=== PATIENT | female | born 1960 | race Caucasian/White ===

== ENCOUNTER → 2016-12-14 | Outpatient (CLI) | payer BC ==
[~2016-12-14] MED LIST: ATOR10TA88 PO
--- NOTE | 2016-12-14 15:48 | MAMMOGRAPHY REPORT ---
BILATERAL DIGITAL SCREENING MAMMOGRAM TOMOSYNTHESIS WITH CAD: 12/14/2016 CLINICAL HISTORY: Routine screening. Patient has no complaints. TECHNIQUE: Breast tomosynthesis in addition to standard 2D mammography was performed. Current study was also evaluated with a Computer Aided Detection (CAD) system. COMPARISON: Comparison is made to exams dated: 12/09/2015 mammogram, 11/26/2014 mammogram, 05/06/2012 m ammogram, 03/07/2011 mammogram, 03/06/2010 mammogram - [facility], and 02/27/2008. BREAST COMPOSITION: The tissue of both breasts is almost entirely fatty. FINDINGS: No suspicious masses, calcifications, or areas of architectural distortion are noted in ei ther breast. There has been no significant interval change compared to prior exams. IMPRESSION: ACR BI-RADS CATEGORY 1: NEGATIVE There is no mammographic evidence of malignancy. A 1 year screening mammogram is recommended. The pa tient will receive written notification of the results. Approximately 10% of breast cancers are not detected with mammography. A negative mammographic report should not delay biopsy if a clinically suggestive mass is present. Brandy Morris M.D. ah/:12/14/2016 09:40:25 Invasive Cardiovascular Technologist: Suma MORINR, M, [facility] letter sent: Normal 1/2 BI-RADS Code: ACR BI-RADS Category 1: Negative
== END | disposition home or self-care (01) ==
LOC: C.MAMM 08:58
PROVIDERS: ATTEND Family Medicine
DX: Z12.31 Encounter for screening mammogram for malignant neoplasm of breast (principal)

== ENCOUNTER → 2017-02-08 | Outpatient (CLI) | payer BC ==
[~2017-02-08] MED LIST changes: +ATOR10TA82 PO; -ATOR10TA88 PO
== END | disposition home or self-care (01) ==
LOC: C.PAPS 11:14
PROVIDERS: ATTEND Obstetrics & Gynecology
DX: Z01.419 Encounter for gynecological examination (general) (routine) without abnormal findings (principal); Z78.0 Asymptomatic menopausal state

== ENCOUNTER → 2017-09-27 | Outpatient (CLI) | payer OTHER ==
[~2017-09-27] VITALS: Ht 157.5 cm; Wt 81.1 kg
[2017-09-27 15:41] VITALS: BP 114/74; PULSE 89; Ht 157.5 cm; Wt 81.1 kg
== END | disposition home or self-care (01) ==
LOC: C.NEUR 14:45
PROVIDERS: ATTEND Internal Medicine Pulmonary Disease
DX: R06.81 Apnea, not elsewhere classified (principal); R06.83 Snoring; R53.83 Other fatigue; D64.9 Anemia, unspecified; D50.9 Iron deficiency anemia, unspecified

== ENCOUNTER → 2017-10-17 | Outpatient (CLI) | payer OTHER ==
--- NOTE | 2017-10-18 05:39 | PAP/PSG TECHNICIAN REPORT ---
[facility] Lab Analyst Polysomnogram Report Study name: None Report date: 10/18/2017 Study date: 10/17/2017 Referring Physician: Ike King M.D. Name: CLAIRE COREY GENARO Isaac Interpreting Physician: Ike King M.D. Date of : 1960 Lab Analyst: Melissa Wiseman [facility]. Sex: Female Age: 57 StudyType: PSG Weight: 178 lbs Height: 57 years, Height 5' 2" Neck Circum: 15 inches BMI: 32.55 Medications: Lexapro 10 mg, Lipitor 20 mg, Vitamin D Patient History 57 yr. old female here for a diagnostic sleep study. Patient complains of Snoring and was told years ago she stopped breathing during a colonoscopy. Patient also has iron deficiency. Patients ESS 08/01. Parameters Monitored NPSG: E1-M2, E2-M1, Fp1-M2, Fp2-M1, F3-M2, F4-M2, F4-M1, C3-M2, C4-M2, C4-M1, O1-M2, O2-M2, O2-M1, T3-M2, T4-M1, P3-M2, P4-M1, CHIN1, CHIN2, HR, EKG, Legs, PFLOW, SNOR, FLOW, CFLOW, Tidal Volume, THOR, ABDO, SpO2, PLTH, CPRESS, ETCO2 Wave, ETCO2, pH Sleep Architecture Sleep Stages Time at Lights Off 9:55:48 PM STAGES Time (min.) TST (%) Time at Lights On 5:33:18 AM Wake 143.0 -- Total Recording Time (TRT) 458.00 min. N1 18.5 6 Total Sleep Period (TSP) 401.0 min. N2 203.0 65 Total Sleep Time (TST) 314.5min. N3 62.5 20 Awake Time 143.5 min. REM 30.5 10 Wake after Sleep Onset 92.0 min. Sleep Efficiency (SE) 69 % Sleep Onset Latency (CJ) 51.0 min. Number of Stage 1 Shifts None Awakenings 14 Stage Changes 69 Number of REM periods 4 REM 30.5 10 REM Latency 334.5 min. NREM 284.0 90 Body Position Analysis Supine Right Left Side Prone Vertical Total Sleep Time (min.) 0.0 80.0 234.5 314.50 0.0 0.6 Total Sleep Time (%) 0% 25% 75% 100 0% N/A% Total Sleep Time REM (min.) 0.0 0.0 30.5 None 0.0 0.0 Total Sleep Time NREM (min.) 0.0 80.0 204.0 None 0.0 0.0 Intermittent Wake (min.) 0.0 102.0 40.4 None 0.0 0.6 Total Sleep Period (%) 0% None None None None None Arousals Myoclonus (PLM) * Events Count Index Events Count Index Spontaneous 2 0 Events Awake (PLMW) 51 21.4 Respiratory 10 2.7 Events Asleep w/ Arousal (PLMA) 10 1.9 PLM 10 2 Events Asleep w/o Arousal (PLMS) 74 14.1 Snoring 11 2 Total Asleep 84 16.0 Total 32 6 Total 135 18 Respiratory Analysis * CA OA MA CH H RERA Total Count 2 20 0 0 82 0 104 Index 0.4 3.8 0.0 0 15.6 0 19.8 Mean Duration 20.6 16.4 0.0 0.00 28.1 0.0 25.7 Longest Duration 22.7 21.8 0.0 0.00 0.0 0.0 63.4 Respiratory Event Summary Total Supine ~Supine Right Left Prone REM NREM Apneas Count 22 N/A 22 1 21 N/A 11 11 Index 4.2 N/A 4 0.8 5.4 N/A 22 2 Hypopneas (4% Desat) Count 82 N/A 82 19 63 N/A 23 59 Index 15.6 N/A 16 14.3 16.1 N/A 45.2 12.5 Apneas & All Hypopneas Count 104 N/A 104 20 84 N/A 34 70 Index 19.8 N/A 20 15 21 N/A 66.9 14.8 Respiratory Events (Recovery Assistant+All Hyp+RERA) Count 104 N/A 104 20 84 N/A 34 70 Index 19.8 N/A 20 15.0 21.5 N/A 66.9 14.8 Respiratory Related Arousal Count 10 N/A 14 2 12 N/A 3 11 Index 2.7 N/A 3 2 3 N/A 6 2 Snoring Analysis Supine Right Left Prone REM NREM Total Snore duration 112.1 min Snores count N/A 937 2,858 N/A 345 3,450 3,795 Snore mean duration 1.8 Sec Snores index N/A 703 731 N/A 678.7 728.9 724.0 TST with snoring (%) 35.7% Desaturation Event Summary: Minimum %SpO2 Event Count Mean/Min/Max Duration(sec.) Desaturation Index % Time In Bed > 90 82 28.5 / 9.0 / 60.0 16.3 66.5 86 - 90 29 24.7 / 9.5 / 44.5 12.1 31.7 81 - 85 6 9.9 / 7.3 / 13.0 48.8 1.6 76 - 80 1 10.0 / 10.0 / 10.0 62.3 0.2 71 - 75 0 N/A 0.0 0.0 66 - 70 0 N/A 0.0 0.0 61 - 65 0 N/A 0.0 0.0 56 - 60 0 N/A 0.0 0.0 51 - 55 0 N/A 0.0 0.0 < 50 0 N/A 0.0 0.0 Total REM NREM Awake <50% 0.0 min. 0.0 min. 0.0 min. 0.0 min. 51 - 60% 0.0 min. 0.0 min. 0.0 min. 0.0 min. 61 - 70% 0.0 min. 0.0 min. 0.0 min. 0.0 min. 71 - 80% 1.0 min. 0.8 min. 0.0 min. 0.2 min. 81 - 90% 151.1 min. 17.7 min. 128.5 min. 4.9 min. 91 - 100% 301.7 min. 12.0 min. 155.5 min. 134.2 min. Average 92 89 91 94 Minimum SpO2 76 76 85 79 Desaturation Event Index 12.7 55.1 12.5 5.0 # Desat. Events below 89% 56 24 30 2 Time(%) with Saturation below 89% 8.4 2.7 5.3 0.4 Time(min.) with Saturation below 89% 38.0 12.1 24.2 1.7 Time (mins) REM (mins) NREM (mins) % of TST SpO2 Below 90% 80 26 N54 26.0 SpO2 Below 88% 23 0 0 5 Heart Rate Analysis Min (bpm) Max (bpm) Average (bpm) Awake 49 105 57 NREM 46 80 56 REM 47 81 60 Overall 46 81 56 Supplemental O2 Values Minimum O2 level: None Value Start Time End Time Lab Analyst Comments MS. iRce slept in the right and left positions. No cardiac arrhythmia or PLMs noted. No bruxism noted. Snoring was noted and scored as a 4 on a scale of 0 through 5. (0=no snoring, 5=snoring loud enough to be heard through a closed door or down the avery way) MS. Rice did not wake to use the restroom during the night. MS. Rice stated,) I did not sleep as well as I do when I am in my own bed, this bed was hard, and I was awake for a long period of time. The final report will be interpreted and signed by a sleep physician. The completed physician report will then be placed in the patient medical record. Therapy (cm H2O) 0 TIB (min.) 457.5 TST (min.) 314.5 Sleep Onset (min.) 51.0 REM Onset From Sleep (min.) 334.5 Sleep Efficiency % 69 Wakefulness (%) 31 Wakefulness (min.) 143.5 NREM 1 (%) 6 NREM 1 (min.) 18.5 NREM 2 (%) 65 NREM 2 (min.) 203.0 NREM 3 (%) 20 NREM 3 (min.) 62.5 REM (%) 10 REM (min.) 30.5 # Arousals 32 Arousal Index 6 # Snore 3,795 Snore Index 724.0 AHI 19.8 AHI Supine N/A AHI Non-Supine 20 NREM AHI 14.8 REM AHI 66.9 RDI 19.8 # Obstructive Apnea 20 # Central Apnea 2 # Mixed Apnea 0 # Hypopneas 82 RERAs 0 Total Respiratory Events 110 Time Below SpO2 89% (min.) 36.3 Mean NREM SpO2 (%) 91 Mean REM SpO2 (%) 89 Mean Sleep SpO2 (%) 91 Min NREM SpO2 (%) 85 Min REM SpO2 (%) 76 Position Supine (min.) 0.0 Position Non-supine (min.) 314.5 LM Index Sleep 16.0 LM Index NREM 14.4 LM Index REM 31.5 Mean Heart Rate (bpm) 56 Min Heart Rate (bpm) 46
--- NOTE | 2017-10-21 13:02 | POLYSOMNOGRAPH REPORT ---
CLINICAL DATA: A 57-year-old female with BMI of 32.55, referred by Dr. Edwards and myself for a history of snoring, witnessed apnea, and fatigue. SLEEP ARCHITECTURE: Total sleep period was 401 minutes. Total sleep time was 314.5 minutes divided between 284 minutes of non-REM sleep and 30.5 minutes of REM sleep. Sleep latency was delayed at 51 minutes. REM latency was delayed at 334.5 minutes. Sleep efficiency was reduced to 69%. Wake after sleep onset was elevated at 92 minutes. Sleep consisted of stage N1 6%, stage N2 65%, stage N3 20%, and REM 10%. AROUSAL DATA: 32 arousals were recorded for an index of 6 per hour. PLM DATA: 84 limb movements during sleep were noted for an index of 16 per hour with arousal index of 19 per hour. RESPIRATORY DATA: Moderate sleep apnea was documented. The AHI was 19.8. There were 2 central and 20 obstructive apneic episodes. The longest duration of apnea was 22.7 seconds. There were 8 hypopneic episodes with a mean duration of 28.1 seconds. OXIMETRY DATA: Nocturnal hypoxemia was seen. Oxygen deion was 76% during REM. Mean saturation was 92%. Time below 88% was 23 minutes. EKG: Heart rates ranged from 46-81 beats per minute. No arrhythmias were noted. AIRCRAFT CAPTAIN'S COMMENTS: The patient slept in the right and left positions. Snoring was severe, rated 4 on a scale of 1-5. IMPRESSION: Moderate sleep apnea/hypopnea with an AHI of 19.8 with nocturnal hypoxemia. RECOMMENDATIONS: The patient may benefit from a repeat sleep study with CPAP, use of auto CPAP, or use of an oral appliance. [facility]
== END | disposition home or self-care (01) ==
LOC: C.NEUR 20:00
PROVIDERS: ATTEND Internal Medicine Pulmonary Disease
DX: R53.83 Other fatigue (principal)